=== PATIENT | female | born 1955 | race African-American/Black ===

== ENCOUNTER 2016-03-20 15:59 | Emergency (ER) | payer MEDICAID ==
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
[2016-03-20 16:13] VITALS: BP 144/88
--- NOTE | 2016-03-20 17:08 | Diagnostic Imaging Report ---
CT scan of the brain without contrast History: Headache, trauma Total DLP equals 537 CTDI equals 32.3 Axial sections were obtained from the base of the skull to the vertex. There is a normal ventricular system size. No focal parenchymal lesions are seen. No evidence of any mass effect or shift of midline structures. No extra-axial masses or abnormal fluid collections. Impression: Negative examination
--- NOTE | 2016-03-20 17:09 | Diagnostic Imaging Report ---
CT scan cervical spine HISTORY: Pain, trauma Total DLP equals 481 CTDI equals 25.0 Axial sections were obtained through the cervical spine. Additional sagittal and coronal reformatted images are provided. The exam demonstrates degenerative changes with hypertrophic spur formation about the endplates of all vertebrae. Findings are more pronounced at C5-6. Alignment is normal. No acute abnormalities. No fractures. The margins of the cervical spinal cord cannot be clearly visualized. The prevertebral soft tissues appear normal. IMPRESSION: 1. No acute abnormalities 2. Diffuse degenerative changes
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
== END 2016-03-20 16:46 | disposition home or self-care (01) ==
LOC: ER 15:59
DX: S09.90XA Unspecified injury of head, initial encounter (principal); S16.1XXA Strain of muscle, fascia and tendon at neck level, initial encounter; S50.02XA Contusion of left elbow, initial encounter; I10 Essential (primary) hypertension; E78.5 Hyperlipidemia, unspecified; W22.8XXA Striking against or struck by other objects, initial encounter; Y93.89 Activity, other specified; Y92.811 Bus as the place of occurrence of the external cause; Y99.8 Other external cause status
CPT/HCPCS: 70450-TC; 72125-TC; 73080-TC-LT; Z7502